=== PATIENT | female | born 1960 | race Caucasian/White ===

== ENCOUNTER 2019-12-17 07:13 | Outpatient (CLI) | payer BC, SELFPAY ==
[2019-12-17 08:08] LABS: Hematocrit 37.7 % (37.0-47.0); Hemoglobin 12.4 g/dL (12.0-15.0); Mean Corpuscular HGB Conc 32.9 g/dl (32-36); Mean Corpuscular Volume 91.1 fl (80-100); Platelet Count Result 169 k/mm3 (150-375); Red Blood Count 4.14 M/mm3 (4.2-5.4); Red Cell Distribution Width 13.7 % (11.5-14.5); White Blood Count 6.3 K/mm3 (4.5-10.0)
[2019-12-17 08:15] LABS: Alanine Aminotransferase 35 U/L (4-35); Albumin Level 4.3 g/dL (3.5-5.1); Alkaline Phosphatase 68 U/L (38-126); Aspartate Amino Transferase 37 U/L (14-36); Blood Urea Nitrogen 16 mg/dL (7-17); Calcium 8.9 mg/dL (8.4-10.2); Carbon Dioxide 27 mmol/L (22-30); Chloride 104 mmol/L (98-107); Cholesterol 149 mg/dL (0-200); Estimated Glomerular Filt Rate > 60; Glucose 92 mg/dL (65-105); HDL Direct 51 mg/dL; Sodium 137 mmol/L (137-145); Triglycerides 106 mg/dL (<150)
[2019-12-17 08:24] LABS: LDL Cholesterol Direct 77 mg/dL
[2019-12-17 08:45] LABS: Free T4 Free Thyroxine 0.83 ng/mL (0.78-2.19)
== END 2019-12-17 07:14 | disposition home or self-care (01) ==
PROVIDERS: PCP Family Medicine; Visit Provider Family Medicine
DX: E78.00 Pure hypercholesterolemia, unspecified (principal); E03.9 Hypothyroidism, unspecified
CPT/HCPCS: 36415; 80053; 80061; 84439; 84443; 85027

== ENCOUNTER 2020-03-09 17:04 | Emergency (ER) | payer BC, SELFPAY ==
[2020-03-09 17:22] VITALS: BP 136/82; PULSE 81; RESP 16; TEMP 36.9; O2SAT 97
--- NOTE | 2020-03-09 17:57 | ED.WOUNDLAC ---
HPI - Wound/Laceration General Chief Complaint: Wound/Laceration Stated Complaint: laceration left 5th finger Time Seen by Provider: 03/09/20 17:57 Source: patient and RN notes reviewed Mode of arrival: ambulatory Limitations: no limitations History of Present Illness HPI narrative: 59 year old female who presents to [facility] care with complaints of accidently cutting herself about 20 minutes prior to arrival to her left villela aspect of her 5th finger proximal region. Patient states that she just got a new pamper private chef knife and she was cutting an avocado when she sliced her finger. Patient has strong left radial pulse, full mobility of her left 5th finger noted with finger pink and bleeding controlled. Patient denies any numbness or tingling to her 5th left finger or hand,States that her Tetanus is not up to date. Onset (ago): minute(s) (20 minutes ago) Location: other (left 5th finger proximal villela aspect) Extremity Location: Left: hand (left 5th proximal finger ville[place] aspect) Place: home Patient tetanus UTD: No Context: accidental Associated symptoms: none Treatments prior to arrival: bandage Related Data Home Medications Medication Instructions Recorded Confirmed Cholesterol Med. 03/09/20 Htn Med. 03/09/20 Allergies Allergy/AdvReac Type Severity Reaction Status Date / Time No Known Allergies Allergy Mild Verified 10/26/17 09:24 Review of Systems Review of Systems: Narrative: CONSTITUTIONAL: Denies fever, chills, or sweats. EYES: Denies visual changes, redness, or discharge. ENT: Denies rhinorrhea, congestion, sore throat, or otalgia. CARDIOVASCULAR: Denies chest pain, palpitations, or edema. RESPIRATORY: Denies cough or dyspnea. GASTROINTESTINAL: Denies abdominal pain, nausea, vomiting, or diarrhea. GENITOURINARY: Denies dysuria or hematuria. SKIN: Denies rash or itching.1.5cm laceration to the villela aspect of 5th finger proximal area MUSCULOSKELETAL: Denies back pain, joint pain, or myalgia. NEUROLOGIC: Denies headache, numbness, or weakness. PSYCHIATRIC: Denies anxiety or depression. All systems reviewed & are unremarkable except as noted in HPI and below PMFSH Past Medical History Medical History (Updated 03/12/20 @ 20:45 by Cierra Burnham NP) Hyperlipemia Hypertension Postmenopausal Surgical History Surgical History (Updated 03/12/20 @ 20:34 by Cierra Burnham NP) History of surgical removal of ganglion cyst History of tonsillectomy Social History Social History (Updated 03/12/20 @ 20:35 by Cierra Burnham NP) Smoking status: Never smoker Alcohol intake: current Substance use: never Living arrangements: with family Gender identity (if verbalized by the patient): Female Comments At time of signature, agree with nursing past medical, surgical, social history. There is no relevant family history pertinent to the presenting complaint Exam Narrative: Exam Narrative: GENERAL: Well-appearing, well-nourished, and in no acute distress. HEAD: Normocephalic, atraumatic. EYES: PERRLA and EOMI. ENT: Nares clear, no rhinorrhea or epistaxis. Mucous membranes moist. NECK: Supple. CHEST: Clear to auscultation. No respiratory distress. HEART: Regular rate and rhythm. No murmur heard. Normal peripheral pulses. ABDOMEN: Soft, nontender, nondistended, normal active bowel sounds. EXTREMITIES: Normal range of motion. No edema. SKIN: Warm, dry, no rash.1.5cm linear laceration to proximal villela aspect of left 5th finger, circulation , sensation and mobility intact with bleeding controlled NEURO: No focal deficits. Alert and oriented x3. Course Vital Signs Vital signs: Vital Signs Temperature 36.9 C 03/09/20 17:22 Pulse Rate 81 03/09/20 17:22 Respiratory Rate 16 03/09/20 17:22 Blood Pressure 136/82 03/09/20 17:22 Pulse Oximetry 97 03/09/20 17:22 Temperature 36.9 C 03/09/20 17:22 Pulse Rate 81 03/09/20 17:22 Respiratory Rate 16 03/09/20 17:22 Blood Pr
--- NOTE | 2020-03-09 18:06 | PC.NURSE ---
boostrix was given vorb yusuf wright. tdap right deltoid im lot [id number], exp 09/27/21 was unable to edit order and scan.
--- NOTE | 2020-03-09 18:25 | PC.NURSE ---
it telecom technician at bedside to do suture repair. was given tdap info. sheet.
== END 2020-03-09 18:43 | disposition home or self-care (01) ==
LOC: EXPCOLL 17:07
PROVIDERS: Emergency Provider Registered Nurse; PCP Family Medicine
DX: S61.217A Laceration without foreign body of left little finger without damage to nail, initial encounter (principal); W26.0XXA Contact with knife, initial encounter; Z23 Encounter for immunization; E78.5 Hyperlipidemia, unspecified; I10 Essential (primary) hypertension; E03.9 Hypothyroidism, unspecified
CPT/HCPCS: 12001; 90471; 90715; 99213; G0463

== ENCOUNTER 2020-03-30 07:30 | Outpatient (CLI) | payer BC, SELFPAY ==
--- NOTE | ~2020-03-30 | MM_ITS ---
EXAMINATION: MM screening [facility] BI w ana HISTORY: Screening mammogram TECHNIQUE: Craniocaudal and mediolateral oblique 3-D tomosynthesis images were obtained and synthetic 2-D images were generated. CAD analysis was submitted and interpreted. COMPARISON: 10/21/2018, 10/12/2017, 10/06/2016 bilateral digital screening mammogram examinations BREAST PARENCHYMAL COMPOSITION: There are scattered areas of fibroglandular density. FINDINGS: There is no evidence of suspicious mass, calcification, or architectural distortion to sugg est malignancy in either breast. There has been no suspicious interval change. IMPRESSION: 1. No mammographic evidence of malignancy. 2. Recommend routine screening mammography in one year. BI-RADS Category 1: Negative... Reviewed, dictated and finalized at location A.
== END 2020-03-30 07:31 | disposition home or self-care (01) ==
LOC: ANHIMG 07:32
PROVIDERS: PCP Family Medicine; Visit Provider Family Medicine
DX: Z12.31 Encounter for screening mammogram for malignant neoplasm of breast (principal)
CPT/HCPCS: 77063; 77067

== ENCOUNTER 2020-05-13 13:32 | Emergency (ER) | payer BC, SELFPAY ==
[2020-05-13 13:44] VITALS: BP 141/88; PULSE 92; RESP 16; TEMP 36; O2SAT 99
--- NOTE | 2020-05-13 13:44 | ED.WOUNDLAC ---
HPI - Wound/Laceration General Chief Complaint: Wound/Laceration Stated Complaint: Laceration Time Seen by Provider: 05/13/20 13:44 Source: patient Mode of arrival: ambulatory Limitations: no limitations History of Present Illness HPI narrative: Sue Price is a 59 yo female with a PMH of HTN, hypothyroid, high cholesterol, ho comes to express care with small laceration of tip L thumb with a clean knife. Happened prior to arrival.No pain but bleeding not totally controlled Related Data Home Medications Medication Instructions Recorded Confirmed levothyroxine 75 mcg PO DAILY 05/13/20 05/13/20 lisinopril 20 mg PO DAILY 05/13/20 05/13/20 rosuvastatin 20 mg PO DAILY 05/13/20 05/13/20 Allergies Allergy/AdvReac Type Severity Reaction Status Date / Time No Known Allergies Allergy Mild Verified 05/13/20 13:37 Review of Systems Review of Systems: Narrative: CONSTITUTIONAL: Denies fever, chills, sweats. EYES: Denies visual changes, redness, discharge. ENT: Denies rhinorrhea, congestion, sore throat, otalgia. CARDIOVASCULAR: Denies chest pain, palpitations, edema. RESPIRATORY: Denies dyspnea, wheezing, cough GASTROINTESTINAL: Denies abdominal pain, nausea, vomiting, diarrhea. GENITOURINARY: Denies dysuria, hematuria, abnormal discharge SKIN: Denies rash or itching. Left arm laceration 0.5 cm NEUROLOGIC: Denies numbness, or focal weakness. PSYCHIATRIC: Denies anxiety or depression. PMFSH Past Medical History Medical History Hyperlipemia Hypertension Hypothyroid Postmenopausal Surgical History Surgical History History of surgical removal of ganglion cyst History of tonsillectomy Social History Social History Smoking status: Never smoker Alcohol intake: current Substance use: never Gender identity (if verbalized by the patient): Female Comments At time of signature, I agree with nursing past medical, surgical, social and family history. There is no relevant family history pertinent to the presenting complaint. Exam Narrative: Exam Narrative: GENERAL: This is a well-nourished, well-developed patient, in mild distress. HEAD: normocephalic, atraumatic. EYES:Sclera clear/white. Vision is grossly intact. EARS: External ears normal. Hearing grossly intact. NOSE: External nose normal without nasal discharge, nares without redness, no rhinorrhea. THROAT: Mucous membranes moist, NECK: Neck supple, CARDIOVASCULAR: Regular rate and rhythm without murmurs, gallops, or rubs. RESPIRATORY: Clear to auscultation. Breath sounds equal bilaterally. No wheezes, rales, or rhonchi. GASTROINTESTINAL: Abdomen soft, SKIN: warm, intact with no suspicious lesions or rash, good texture and turgor.small laceration with some bleeding on L medial thumb approaching nail bed NEURO: awake, alert, and oriented to person, place and time. There were no obvious focal neurologic abnormalities. Steady gait EXTREMITIES: Normal range of motion. BACK: Nontender without deformity Course Course Emergency Course: Patient came to express care with small lack to left thumb with some bleeding Number repaired with adhesive and Steri-Strips pressure dressing applied Directions for care given; see tetanus vaccine last visit Vital Signs Vital signs: Vital Signs Temperature 96.8 F L 05/13/20 13:44 Pulse Rate 92 05/13/20 13:44 Respiratory Rate 16 05/13/20 13:44 Blood Pressure 141/88 H 05/13/20 13:44 Pulse Oximetry 99 05/13/20 13:44 Temperature 96.8 F L 05/13/20 13:47 Pulse Rate 92 05/13/20 13:47 Respiratory Rate 16 05/13/20 13:47 Blood Pressure 141/88 H 05/13/20 13:47 Pulse Oximetry 99 05/13/20 13:47 Procedures Laceration Laceration 1: Date: 05/13/20 Time: 14:00 Site: hand Side (If applicable): left Siz
[2020-05-13 13:47] VITALS: BP 141/88; PULSE 92; RESP 16; TEMP 36; O2SAT 99
== END 2020-05-13 14:07 | disposition home or self-care (01) ==
PROVIDERS: Emergency Provider Nurse Practitioner; PCP Family Medicine
DX: S61.012A Laceration without foreign body of left thumb without damage to nail, initial encounter (principal); W26.0XXA Contact with knife, initial encounter; E78.5 Hyperlipidemia, unspecified; I10 Essential (primary) hypertension; E03.9 Hypothyroidism, unspecified
CPT/HCPCS: 12001; 99212; G0463

== ENCOUNTER 2020-09-15 07:17 | Outpatient (CLI) | payer BC, SELFPAY ==
[2020-09-15 07:47] LABS: Alanine Aminotransferase 28 U/L (4-35); Albumin Level 4.6 g/dL (3.5-5.1); Alkaline Phosphatase 79 U/L (38-126); Anion Gap 5 mmol/L (8-16); Aspartate Amino Transferase 30 U/L (14-36); Blood Urea Nitrogen 16 mg/dL (7-17); Calcium 9.7 mg/dL (8.4-10.2); Carbon Dioxide 30 mmol/L (22-30); Chloride 105 mmol/L (98-107); Cholesterol 171 mg/dL (0-200); Estimated Glomerular Filt Rate > 60; Glucose 100 mg/dL (65-105); HDL Direct 48 mg/dL; Potassium 4.5 mmol/L (3.4-5.0); Sodium 140 mmol/L (137-145); Triglycerides 111 mg/dL (<150)
[2020-09-15 07:58] LABS: LDL Cholesterol Direct 85 mg/dL
== END 2020-09-15 07:18 | disposition home or self-care (01) ==
PROVIDERS: PCP Internal Medicine; Visit Provider Nurse Practitioner
DX: E03.9 Hypothyroidism, unspecified (principal); E78.5 Hyperlipidemia, unspecified
CPT/HCPCS: 36415; 80053; 80061; 84443

== ENCOUNTER 2021-03-23 07:38 | Outpatient (CLI) | payer BC, SELFPAY ==
[2021-03-23 08:46] LABS: Alanine Aminotransferase 28 U/L (4-35); Albumin Level 4.9 g/dL (3.5-5.1); Alkaline Phosphatase 93 U/L (38-126); Anion Gap 11 mmol/L (8-16); Aspartate Amino Transferase 31 U/L (14-36); Bilirubin,Total 1.3 mg/dL (0.2-1.3); Blood Urea Nitrogen 18 mg/dL (7-17); Carbon Dioxide 26 mmol/L (22-30); Chloride 105 mmol/L (98-107); Cholesterol 181 mg/dL (0-200); Estimated Glomerular Filt Rate > 60; Glucose 100 mg/dL (65-110); HDL Direct 57 mg/dL; Potassium 4.3 mmol/L (3.4-5.0); Sodium 142 mmol/L (137-145); Triglycerides 99 mg/dL (<150)
[2021-03-23 08:57] LABS: LDL Cholesterol Direct 86 mg/dL
== END 2021-03-23 07:39 | disposition home or self-care (01) ==
PROVIDERS: PCP Internal Medicine; Visit Provider Nurse Practitioner
DX: E78.5 Hyperlipidemia, unspecified (principal); E03.9 Hypothyroidism, unspecified
CPT/HCPCS: 36415; 80053; 80061; 84443

== ENCOUNTER 2021-04-23 17:29 | Outpatient (CLI) | payer BC, SELFPAY ==
--- NOTE | ~2021-04-23 | MM_ITS ---
EXAMINATION: MM screening leda BI w ana HISTORY: Screening mammogram TECHNIQUE: Craniocaudal and mediolateral oblique 3-D tomosynthesis images were obtained and synthetic 2-D images were generated. CAD analysis was submitted and interpreted. COMPARISON: 03/30/2020, 10/21/2018, 10/12/2017 bilateral digital screening mammogram examinations BREAST PARENCHYMAL COMPOSITION: There are scattered areas of fibroglandular density. FINDINGS: There is no evidence of suspicious mass, calcification, or architectural distortion to sugg est malignancy in either breast. There has been no suspicious interval change. IMPRESSION: 1. No mammographic evidence of malignancy. 2. Recommend routine screening mammography in one year. BI-RADS Category 1: Negative Reviewed, dictated and finalized at location A.
== END 2021-04-23 17:30 | disposition home or self-care (01) ==
LOC: ANHIMG 17:30
PROVIDERS: PCP Internal Medicine; Visit Provider Nurse Practitioner
DX: Z12.31 Encounter for screening mammogram for malignant neoplasm of breast (principal)
CPT/HCPCS: 77063; 77067

== ENCOUNTER 2021-10-05 08:10 | Outpatient (CLI) | payer BC, SELFPAY ==
[2021-10-05 08:41] LABS: Alanine Aminotransferase 27 U/L (4-35); Albumin Level 4.8 g/dL (3.5-5.1); Alkaline Phosphatase 85 U/L (38-126); Anion Gap 9 mmol/L (8-16); Aspartate Amino Transferase 34 U/L (14-36); Bilirubin,Total 0.8 mg/dL (0.2-1.3); Blood Urea Nitrogen 15 mg/dL (7-17); Calcium 9.3 mg/dL (8.4-10.2); Carbon Dioxide 28 mmol/L (22-30); Chloride 104 mmol/L (98-107); Cholesterol 167 mg/dL (0-200); Estimated Glomerular Filt Rate > 60; Glucose 101 mg/dL (65-110); HDL Direct 49 mg/dL; Potassium 4.4 mmol/L (3.4-5.0); Sodium 141 mmol/L (137-145); Triglycerides 87 mg/dL (<150)
[2021-10-05 08:52] LABS: LDL Cholesterol Direct 73 mg/dL
== END 2021-10-05 08:11 | disposition home or self-care (01) ==
LOC: ANHLAB 08:11
PROVIDERS: PCP Internal Medicine; Visit Provider Nurse Practitioner
DX: E78.5 Hyperlipidemia, unspecified (principal)
CPT/HCPCS: 36415; 80053; 80061

== ENCOUNTER 2022-04-18 08:09 | Outpatient (CLI) | payer BC, SELFPAY ==
[2022-04-18 09:18] LABS: Alanine Aminotransferase 32 U/L (6-35); Albumin Level 4.9 g/dL (3.5-5.1); Alkaline Phosphatase 82 U/L (38-126); Anion Gap 9 mmol/L (8-16); Aspartate Amino Transferase 29 U/L (14-36); Blood Urea Nitrogen 18 mg/dL (7-17); Calcium 9.6 mg/dL (8.4-10.2); Carbon Dioxide 30 mmol/L (22-30); Chloride 102 mmol/L (98-107); Cholesterol 170 mg/dL (0-200); Estimated Glomerular Filt Rate > 60; Glucose 98 mg/dL (65-110); HDL Direct 53 mg/dL; Potassium 4.3 mmol/L (3.4-5.0); Sodium 141 mmol/L (137-145); Triglycerides 141 mg/dL (<150)
[2022-04-18 09:29] LABS: LDL Cholesterol Direct 77 mg/dL
== END 2022-04-18 08:10 | disposition home or self-care (01) ==
PROVIDERS: PCP Internal Medicine; Visit Provider Internal Medicine
DX: Z01.89 Encounter for other specified special examinations (principal); Z01.01 Encounter for examination of eyes and vision with abnormal findings
CPT/HCPCS: 36415; 80053; 80061; 84443

== ENCOUNTER 2022-05-16 10:49 | Outpatient (CLI) | payer BC, SELFPAY ==
--- NOTE | ~2022-05-16 | MM_ITS ---
EXAMINATION: MM screening leda BI w ana HISTORY: Screening mammogram TECHNIQUE: Craniocaudal and mediolateral oblique 3-D tomosynthesis images were obtained and synthetic 2-D images were generated. CAD analysis was submitted and interpreted. COMPARISON: 04/23/2021, 03/30/2020, 10/21/2018 bilateral screening mammogram examinations BREAST PARENCHYMAL COMPOSITION: There are scattered areas of fibroglandular density. FINDINGS: There is no evidence of suspicious mass, calcification, or architectural distortion to sugg est malignancy in either breast. There has been no suspicious interval change. IMPRESSION: 1. No mammographic evidence of malignancy. 2. Recommend routine screening mammography in one year. BI-RADS Category 1: Negative Reviewed, dictated and finalized at location A. CAL ADMINISTRATIVE TECHNICIAN
== END 2022-05-16 10:50 | disposition home or self-care (01) ==
LOC: ANHIMG 10:52
PROVIDERS: PCP Internal Medicine; Visit Provider Internal Medicine
DX: Z12.31 Encounter for screening mammogram for malignant neoplasm of breast (principal)
CPT/HCPCS: 77063; 77067

== ENCOUNTER 2022-10-28 06:35 | Outpatient (CLI) | payer BC, SELFPAY ==
[2022-10-28 07:04] LABS: Alanine Aminotransferase 33 U/L (6-35); Albumin Level 4.5 g/dL (3.5-5.1); Alkaline Phosphatase 72 U/L (38-126); Anion Gap 8 mmol/L (8-16); Aspartate Amino Transferase 27 U/L (14-36); Bilirubin,Total 0.8 mg/dL (0.2-1.3); Blood Urea Nitrogen 19 mg/dL (7-17); Calcium 8.8 mg/dL (8.4-10.2); Carbon Dioxide 28 mmol/L (22-30); Chloride 105 mmol/L (98-107); Cholesterol 153 mg/dL (0-200); Estimated Glomerular Filt Rate > 60; Glucose 99 mg/dL (65-110); HDL Direct 45 mg/dL; Potassium 4.3 mmol/L (3.4-5.0); Sodium 141 mmol/L (137-145); Triglycerides 138 mg/dL (<150)
[2022-10-28 07:15] LABS: LDL Cholesterol Direct 73 mg/dL
== END 2022-10-28 06:36 | disposition home or self-care (01) ==
LOC: ANHLAB 06:36
PROVIDERS: PCP Family Medicine; Visit Provider Nurse Practitioner
DX: Z00.00 Encounter for general adult medical examination without abnormal findings (principal); E78.5 Hyperlipidemia, unspecified; E03.9 Hypothyroidism, unspecified
CPT/HCPCS: 36415; 80053; 80061; 84443

== ENCOUNTER 2022-12-22 08:15 | Outpatient (CLI) | payer BC, SELFPAY ==
[2022-12-22 09:11] LABS: Basophils Absolute Auto 0.1 K/mm3 (0.0-0.1); Basophils Percent Auto 0.8 % (0.2-1.2); Eosinophils Absolute Auto 0.3 K/mm3 (0-0.3); Eosinophils Percent Auto 4.9 % (0-4.4); Hematocrit 41.1 % (37.0-47.0); Hemoglobin 13.2 g/dL (12.0-15.0); Immature Granulocyte Absolute 0.01 K/mm3 (0.00-0.031); Immature Granulocyte Percent A 0.2 % (0-0.5); Lymphocytes Absolute Auto 1.76 K/mm3 (0.9-3.2); Lymphocytes Percent Auto 28.9 % (18.3-44.2); Mean Corpuscular HGB Conc 32.1 g/dl (32-36); Mean Corpuscular Hemoglobin 29.2 pg (26-34); Mean Corpuscular Volume 90.9 fl (80-100); Monocytes Absolute Auto 0.6 K/mm3 (0.1-0.6); Monocytes Percent Auto 10.2 % (2.6-8.5); Neutrophils Absolute Auto 3.3 K/mm3 (1.3-6.7); Platelet Count Result 179 k/mm3 (150-375); Red Blood Count 4.52 M/mm3 (4.2-5.4); Red Cell Distribution Width 13.7 % (11.5-14.5); White Blood Count 6.1 K/mm3 (4.5-10.0)
[2022-12-22 09:35] LABS: Iron 87 ug/dL (37-170)
[2022-12-22 09:45] LABS: Percent Iron Saturation 23 % (20-50)
[2022-12-22 09:55] LABS: Free T4 Free Thyroxine 1.07 ng/mL (0.78-2.19); Thyroid Stimulating Hormone 0.796 uIU/mL (0.465-4.680)
[2022-12-22 10:29] LABS: Vitamin D 25 Hydroxy 33.9 ng/mL
[2022-12-22 10:34] LABS: Folic Acid > 20.0 ng/mL (2.76->20)
== END 2022-12-22 08:16 | disposition home or self-care (01) ==
LOC: ANHLAB 08:16
PROVIDERS: PCP Nurse Practitioner Family; Visit Provider Nurse Practitioner Family
DX: Z00.00 Encounter for general adult medical examination without abnormal findings (principal); E03.9 Hypothyroidism, unspecified; R53.83 Other fatigue; E55.9 Vitamin D deficiency, unspecified
CPT/HCPCS: 36415; 82306; 82607; 82746; 83540; 83550; 84439; 84443; 85025

== ENCOUNTER 2023-02-05 12:28 | Emergency (ER) | payer BC, SELFPAY ==
--- NOTE | ~2023-02-05 | XR_ITS ---
EXAMINATION: XR chest 2V DATE: 02/05/2023 13:53 INDICATION: Productive cough TECHNIQUE: PA and lateral views of the chest were obtained. COMPARISON: Chest radiograph dated 07/17/2007 FINDINGS: The lungs remain clear with no focal airspace opacities, pulmonary edema, pleural effusion or pneumot horax. The cardiomediastinal silhouette is normal. Mild thoracic spondylosis. IMPRESSION: 1. No acute cardiopulmonary disease. Reviewed, dictated and finalized at location A.
[2023-02-05 12:47] VITALS: BP 160/85; PULSE 64; RESP 16; TEMP 36.6; O2SAT 98
--- NOTE | 2023-02-05 13:39 | ED.URI ---
HPI - URI/Sore Throat General Chief Complaint: Upper Respiratory Infection Stated Complaint: out of breath Time Seen by Provider: 02/05/23 13:39 Source: patient Mode of arrival: ambulatory Limitations: no limitations History of Present Illness HPI Narrative: 62-year-old female with a history of asthma presented for complaint of fatigue and difficulty taking in a full breath sometimes. Reports occasional cough with green sputum. Symptoms started about 10 days ago. Reports not sleeping well last night. Denies cp, palpitations, sob, wheezing, n/v/d/f/c. States her tested positive for covid 2 weeks ago. Using albuterol inhaler prn, stating it is not helping much. States she was told several years ago she had CHF from a chest xray, but has not had any issues since then. Related Data Home Medications Medication Instructions Recorded Confirmed aspirin 81 mg tablet,delayed 81 mg PO DAILY 09/14/20 04/25/22 release (Jamin Low Dose Aspirin) cetirizine 10 mg tablet (Allergy 10 mg PO DAILY PRN 09/14/20 11/03/22 Relief (cetirizine)) coenzyme Q10 200 mg capsule 200 mg PO DAILY 09/14/20 04/25/22 glucosamine [id number]-L5-Hairijkav 1 tablet PO DAILY 09/14/20 11/03/22 jorge 1,500 mg-400 unit-100 mg tablet (Osteo Bi-Flex (5-Loxin)) Allergies Allergy/AdvReac Type Severity Reaction Status Date / Time No Known Allergies Allergy Mild Verified 11/03/22 10:02 Review of Systems Review of Systems: CONSTITUTIONAL: Reports fatigue denies body aches, fever, chills, or sweats. EYES: Denies visual changes, redness, or discharge. ENT: Denies rhinorrhea, congestion, sore throat, or otalgia. CARDIOVASCULAR: Denies chest pain, palpitations, or edema. RESPIRATORY: Reports cough, denies sob, wheezing. GASTROINTESTINAL: Denies abdominal pain, nausea, vomiting, or diarrhea. GENITOURINARY: Denies dysuria or hematuria. SKIN: Denies rash, itching, or wounds. MUSCULOSKELETAL: Denies back pain, joint pain, or myalgia. NEUROLOGIC: Denies headache, numbness, tingling, or weakness. All systems reviewed & are unremarkable except as noted in HPI and below PMFSH Past Medical History Medical History Congestive heart failure Family history of colon cancer Hyperlipemia Hypertension Hypothyroid Postmenopausal Thyroid condition Surgical History Surgical History History of surgical removal of ganglion cyst History of tonsillectomy Family History Family History Sibling Carcinoma of colon Mother Thyroid condition Social History Social History Smoking status: Never smoker Second hand tobacco smoke exposure: No Alcohol intake: current Alcohol use details: socially Substance use: never Living arrangements: with family Occupation/Education: unemployed Gender identity (if verbalized by the patient): Female Comments At time of signature, I have reviewed and agree with nursing past medical, surgical, social and family history unless otherwise noted. Please see nursing chart for further information. There is no relevant family history pertinent to the presenting complaint Exam Narrative: GENERAL: Well-appearing, in no acute distress. EYES: EOMI. No redness or drainage. Conjunctivae normal. ENT: Mucous membranes pink and moist. No rhinorrhea. TMs normal bilaterally. Throat normal. Uvula midline. NECK: Normal AROM. Supple. CHEST: No respiratory distress. No cough noted lungs clear to all haji. HEART: Regular rate and rhythm. No murmur appreciated. ABDOMEN: Soft, nontender, nondistended, normal active bowel sounds. EXTREMITIES: Normal range of motion. No edema. SKIN: Warm, dry, no rash. Capillary refill normal. Normal skin turgor. NEURO: Alert and oriented x3. Gait steady. PSYCH: Normal aff
== END 2023-02-05 14:41 | disposition home or self-care (01) ==
PROVIDERS: Emergency Provider Nurse Practitioner Family; PCP Nurse Practitioner Family
DX: B34.9 Viral infection, unspecified (principal); I11.0 Hypertensive heart disease with heart failure; E78.5 Hyperlipidemia, unspecified; E03.9 Hypothyroidism, unspecified; Z79.82 Long term (current) use of aspirin
CPT/HCPCS: 71046; 87804; 99213; G0463

== ENCOUNTER 2023-02-07 08:42 | Emergency (ER) | payer BC, SELFPAY ==
--- NOTE | ~2023-02-07 | XR_ITS ---
EXAMINATION: XR chest 1V portable DATE: 02/07/2023 09:40 INDICATION: Cough and shortness of breath TECHNIQUE: frontal view of the chest was obtained. COMPARISON: Chest radiograph dated 02/22/2023 FINDINGS: The lungs remain clear with no focal airspace opacities, pulmonary edema, pleural effusion or pneumot horax. The cardiomediastinal silhouette is within normal limits for AP technique. Old healed left cla vicle fracture. IMPRESSION: 1. No acute cardiopulmonary disease. Reviewed, dictated and finalized at location A.
[2023-02-07 08:47] VITALS: BP 150/82; PULSE 80; RESP 16; TEMP 36.3; O2SAT 96
[2023-02-07 09:05] VITALS: O2SAT 95
[2023-02-07 09:09] VITALS: BP 158/72; PULSE 64; RESP 18; O2SAT 95
[2023-02-07 09:53] LABS: Influenza A QL RT-PCR Negative (Negative); Influenza B QL RT-PCR Negative (Negative); RSV RNA, RT-PCR Negative (Negative); SARS-CoV-2 RNA PCR Positive (Negative)
--- NOTE | 2023-02-07 10:17 | ED.GENADULT ---
HPI - General Adult General Chief complaint: Upper Respiratory Infection Stated complaint: COVID EXPOSURE NOT FEELING GOOD Time Seen by Provider: 02/07/23 08:55 History of Present Illness HPI narrative: 62-year-old female presented the emergency department for evaluation of generalized weakness and intermittent shortness of breath. Patient states her was diagnosed with COVID and influenza January 25. Patient began developing symptoms on the . Patient states that she still has intermittent symptoms of shortness of breath. Patient does have a prior history of congestive heart failure. Patient denies any associated chest pain. Related Data Home Medications Medication Instructions Recorded Confirmed aspirin 81 mg tablet,delayed 81 mg PO DAILY 09/14/20 04/25/22 release (Jamin Low Dose Aspirin) cetirizine 10 mg tablet (Allergy 10 mg PO DAILY PRN 09/14/20 11/03/22 Relief (cetirizine)) coenzyme Q10 200 mg capsule 200 mg PO DAILY 09/14/20 04/25/22 glucosamine BOl-[id number]-[id number] 1 tablet PO DAILY 09/14/20 11/03/22 jorge 1,500 mg-400 unit-100 mg tablet (Osteo Bi-Flex (5-Loxin)) Allergies Allergy/AdvReac Type Severity Reaction Status Date / Time No Known Allergies Allergy Mild Verified 11/03/22 10:02 Review of Systems Review of Systems: All systems reviewed & are unremarkable except as noted in HPI and below PMFSH Past Medical History Medical History Congestive heart failure Family history of colon cancer Hyperlipemia Hypertension Hypothyroid Postmenopausal Thyroid condition Surgical History Surgical History History of surgical removal of ganglion cyst History of tonsillectomy Family History Family History Sibling Carcinoma of colon Mother Thyroid condition Social History Social History Smoking status: Never smoker Second hand tobacco smoke exposure: No Alcohol intake: current Alcohol use details: socially Substance use: never Living arrangements: with family Occupation/Education: unemployed Gender identity (if verbalized by the patient): Female Exam Narrative: APPEARANCE: Well appearing, no pain, no distress, well-nourished. HEAD: normocephalic, atraumatic. EYES: PERRLA/EOMI, conjunctivae clear. NOSE: Normal no drainage EARS:TMS clear with good light reflex. THROAT: Pharynx clear, no exudate. NECK: Supple. No adenopathy, no masses. RESPIRATORY: Airway patent, respirations nonlabored. Clear to auscultation bilaterally, no rales, rhonchi, wheezing. CARDIOVASCULAR: Regular rate and rhythm without murmurs rubs or gallops. ABDOMINAL: Soft, nontender, nondistended, normal bowel sounds MUSCULOSKELETAL: Moves all extremities. Strength/ROM intact, No edema, No calf tenderness. NEURO: Alert. Cranial nerves II through XII intact. Grossly intact SKIN: Warm, dry. Normal Color Course Course Emergency Course: 60-year-old female presented the ED for evaluation of intermittent shortness of breath and generalized weakness. Patient was placed on a monitoring manager and was found to be in intermittent ventricular bigeminy. Patient did test positive for COVID. 60 patient is afebrile but does have a leukocytosis of 11.4. Patient's CMP is generally within normal limits with no potassium or magnesium abnormality. Patient's BNP is elevated at 338. Patient is COVID-positive. Chest x-ray showed no acute cardiopulmonary malady. Patient did have intermittent ventricular bigeminy that lasts 1 minute or so and then returns back to normal sinus rhythm. Case was discussed with Dr. Gordon from cardiology and she was comfortable with the patient having close follow-up as outpatient. Patient was updated the results of her work-up and was encouraged of close follow-up. A
[2023-02-07 10:25] VITALS: BP 153/85; PULSE 58; RESP 17; O2SAT 94
[2023-02-07 10:30] LABS: Basophils Percent Auto 0.3 % (0.2-1.2); Eosinophils Absolute Auto 0.1 K/mm3 (0-0.3); Eosinophils Percent Auto 0.4 % (0-4.4); Hematocrit 41.4 % (37.0-47.0); Hemoglobin 13.8 g/dL (12.0-15.0); Immature Granulocyte Absolute 0.05 K/mm3 (0.00-0.031); Immature Granulocyte Percent A 0.4 % (0-0.5); Lymphocytes Percent Auto 18.5 % (18.3-44.2); Mean Corpuscular HGB Conc 33.3 g/dl (32-36); Mean Corpuscular Hemoglobin 29.1 pg (26-34); Mean Corpuscular Volume 87.3 fl (80-100); Mean Platelet Volume 11.7 fl (7.4-10.4); Monocytes Absolute Auto 0.9 K/mm3 (0.1-0.6); Monocytes Percent Auto 7.7 % (2.6-8.5); Neutrophils Absolute Auto 8.3 K/mm3 (1.3-6.7); Neutrophils Percent Auto 72.7 % (45.5-73.1); Platelet Count Result 204 k/mm3 (150-375); Red Blood Count 4.74 M/mm3 (4.2-5.4); Red Cell Distribution Width 13.1 % (11.5-14.5); White Blood Count 11.4 K/mm3 (4.5-10.0)
[2023-02-07 10:43] LABS: Alanine Aminotransferase 31 U/L (6-35); Albumin Level 4.6 g/dL (3.5-5.1); Alkaline Phosphatase 69 U/L (38-126); Anion Gap 11 mmol/L (8-16); Aspartate Amino Transferase 24 U/L (14-36); Blood Urea Nitrogen 21 mg/dL (7-17); Calcium 9.3 mg/dL (8.4-10.2); Carbon Dioxide 26 mmol/L (22-30); Chloride 105 mmol/L (98-107); Estimated CRCL calculation 87 ml/min; Estimated Glomerular Filt Rate > 60; Glucose 102 mg/dL (65-110); Magnesium 2.1 mg/dL (1.6-2.3); Potassium 3.7 mmol/L (3.4-5.0); Sodium 142 mmol/L (137-145)
[2023-02-07 10:51] LABS: NT Pro B Type Natriuretic Pept 338 pg/mL (19.9-100)
[2023-02-07 11:45] VITALS: BP 154/73; PULSE 52; RESP 12; O2SAT 95
[2023-02-07 12:19] VITALS: BP 144/59; PULSE 54; RESP 12; O2SAT 97
== END 2023-02-07 12:21 | disposition home or self-care (01) ==
PROVIDERS: Emergency Provider Emergency Medicine; PCP Nurse Practitioner Family
DX: U07.1 COVID-19 (principal); R00.8 Other abnormalities of heart beat; I50.9 Heart failure, unspecified; I11.0 Hypertensive heart disease with heart failure; E78.5 Hyperlipidemia, unspecified; E03.9 Hypothyroidism, unspecified
CPT/HCPCS: 36415; 71045; 80053; 83735; 83880; 84443; 85025; 87637; 99283

== ENCOUNTER 2023-03-20 18:54 | Emergency (ER) | payer BC, SELFPAY ==
--- NOTE | ~2023-03-20 | XR_ITS ---
XR chest 2V DATE: 03/21/2023 00:25 INDICATION: Cough TECHNIQUE: PA and lateral views COMPARISON: 02/07/2023 portable AP chest FINDINGS: Heart size is within upper normal limits. Mild aortic unfolding. No hilar or mediastinal en largement. No pulmonary infiltrate or consolidation, pleural effusion or pulmonary vascular congestion or pneumo thorax. Old healed fracture deformity of left mid clavicular shaft. IMPRESSION: No active disease Reviewed, dictated and finalized at location A. IMPRESSION: No active disease
[2023-03-20 18:59] VITALS: BP 153/67; PULSE 86; RESP 17; TEMP 36.6; O2SAT 95
[2023-03-20 21:35] VITALS: BP 148/94; PULSE 69; RESP 19; O2SAT 95
--- NOTE | 2023-03-21 00:04 | ED.GENADULT ---
HPI - General Adult General Chief complaint: Unspecified Stated complaint: I don't feel good Time Seen by Provider: 03/20/23 23:47 History of Present Illness HPI narrative: 62-year-old female reports for evaluation for generalized malaise, nasal congestion, ear congestion, and intermittent nonproductive cough. Patient was diagnosed with COVID at the beginning of February and states since then she has not felt back to normal. She was diagnosed with COVID on 02/07 and was found to have ventricular bigeminy at that time. She followed up with her PCP who referred her to cardiology. The patient is scheduled in 2 days for Holter monitor and in April for an echo. She has been taking Zyrtec and Flonase daily. She was recently prescribed azithromycin by her PCP again for continual symptoms, her last dose is tomorrow. She also states she has been feeling more anxious and jittery lately. She denies chest pain or shortness of breath, abdominal pain, nausea or vomiting, diarrhea, fever, dysuria or hematuria, sore throat. Related Data Home Medications Medication Instructions Recorded Confirmed aspirin 81 mg tablet,delayed 81 mg PO DAILY 09/14/20 03/17/23 release (Jamin Low Dose Aspirin) cetirizine 10 mg tablet (Allergy 10 mg PO DAILY PRN 09/14/20 03/17/23 Relief (cetirizine)) coenzyme Q10 200 mg capsule 200 mg PO DAILY 09/14/20 03/17/23 glucosamine HBr-P3-Iseswkgyz 1 tablet PO DAILY 09/14/20 03/17/23 jorge 1,500 mg-400 unit-100 mg tablet (Osteo Bi-Flex (5-Loxin)) Allergies Allergy/AdvReac Type Severity Reaction Status Date / Time No Known Allergies Allergy Mild Verified 03/17/23 11:01 Review of Systems Review of Systems: CONSTITUTIONAL: Denies fever, chills EYES: Denies visual changes, redness, or discharge. ENT: See HPI CARDIOVASCULAR: Denies chest pain, palpitations, or edema. RESPIRATORY: Denies cough or dyspnea. GASTROINTESTINAL: Denies abdominal pain, nausea, vomiting, or diarrhea. GENITOURINARY: Denies dysuria or hematuria. SKIN: Denies rash or itching. MUSCULOSKELETAL: Denies back pain, joint pain, or myalgia. NEUROLOGIC: Denies headache, numbness, dizziness, or weakness. PSYCHIATRIC: See [facility] Past Medical History Medical History Congestive heart failure Family history of colon cancer Hyperlipemia Hypertension Hypothyroid Postmenopausal Thyroid condition Surgical History Surgical History History of surgical removal of ganglion cyst History of tonsillectomy Family History Family History Sibling Carcinoma of colon Mother Thyroid condition Social History Social History Smoking status: Never smoker Second hand tobacco smoke exposure: No Alcohol intake: current Alcohol use details: socially Substance use: never Lack of Transportation: No Lack of Food: Never True Current Housing: I Have Housing Concerned About Future Housing: No Difficulty Paying Gas/Electric Bills: No Difficulty Paying for Meds: No Currently Unemployed: No Education: High School Diploma/GED Difficulty w/ Childcare or Family Care: No Living arrangements: with family Occupation/Education: unemployed Gender identity (if verbalized by the patient): Female Exam Narrative: GENERAL: Well-appearing, in no acute distress. Patient resting comfortably in exam bed. She is pleasant conversational. HEAD: Normocephalic EYES: PERRLA, EOMI ENT: Nares clear. Mucous membranes moist. Oropharynx without tonsillar hypertrophy exudate or other lesions. Bilateral TMs are pardo and nonbulging. No mastoid tenderness. Normal canals. NECK: Supple. No nuchal rigidity. CHEST: No respiratory distress. Clear to auscultation, no adventitious breath sounds. HEART: Regular rate and
[2023-03-21] MEDS: LORazepam INJ (*CRX) 2 MG/ML VIAL 1 MG IV PUSH (00:45)
[2023-03-21] MEDS: SODIUM CHLORIDE 0.9% IV 1,000 ML 999 ML IV CONT (00:46)
[2023-03-21 00:50] VITALS: BP 146/64; PULSE 68; RESP 15; O2SAT 98
[2023-03-21 00:52] LABS: Basophils Percent Auto 0.5 % (0.2-1.2); Eosinophils Absolute Auto 0.3 K/mm3 (0-0.3); Hematocrit 39.9 % (37.0-47.0); Hemoglobin 13.2 g/dL (12.0-15.0); Immature Granulocyte Absolute 0.01 K/mm3 (0.00-0.031); Immature Granulocyte Percent A 0.1 % (0-0.5); Lymphocytes Absolute Auto 1.84 K/mm3 (0.9-3.2); Lymphocytes Percent Auto 22.3 % (18.3-44.2); Mean Corpuscular HGB Conc 33.1 g/dl (32-36); Mean Corpuscular Hemoglobin 29.4 pg (26-34); Mean Corpuscular Volume 88.9 fl (80-100); Mean Platelet Volume 11.8 fl (7.4-10.4); Monocytes Absolute Auto 0.7 K/mm3 (0.1-0.6); Monocytes Percent Auto 8.6 % (2.6-8.5); Neutrophils Absolute Auto 5.4 K/mm3 (1.3-6.7); Neutrophils Percent Auto 65.5 % (45.5-73.1); Platelet Count Result 184 k/mm3 (150-375); Red Blood Count 4.49 M/mm3 (4.2-5.4); Red Cell Distribution Width 13.4 % (11.5-14.5); White Blood Count 8.3 K/mm3 (4.5-10.0)
[2023-03-21 01:01] LABS: Alanine Aminotransferase 25 U/L (6-35); Albumin Level 4.6 g/dL (3.5-5.1); Alkaline Phosphatase 71 U/L (38-126); Anion Gap 8 mmol/L (8-16); Aspartate Amino Transferase 26 U/L (14-36); Bilirubin,Total 1.1 mg/dL (0.2-1.3); Blood Urea Nitrogen 11 mg/dL (7-17); Calcium 9.6 mg/dL (8.4-10.2); Carbon Dioxide 27 mmol/L (22-30); Chloride 104 mmol/L (98-107); Estimated CRCL calculation 102 ml/min; Estimated Glomerular Filt Rate > 60; Glucose 107 mg/dL (65-110); Potassium 3.8 mmol/L (3.4-5.0); Sodium 139 mmol/L (137-145)
--- NOTE | 2023-03-21 01:52 | ECG_ITS ---
Measurements Intervals [place] Rate: 72 P: 65 SC: 160 QRS: 13 QRSD: 97 T: 51 QT: 424 QTc: 465 Interpretive Statements SINUS RHYTHM VENTRICULAR BIGEMINY ABNORMAL ECG NO PREVIOUS ECG AVAILABLE FOR COMPARISON Electronically Signed On 03-21-2023 7:30:12 CDT by Sabas Mccrary D.O.
[2023-03-21 02:11] LABS: Appearance Urine Clear (Clear); Bacteria Urine None Seen /hpf; Bilirubin Urine Negative (Negative); Blood Urine Negative (Negative); Color Urine Yellow (Yellow); Glucose Urine UA Negative (Negative); Ketones Urine 1+ mg/dL (Negative); Leukocyte Esterase Ur 2+ LEU/UL (Negative); Nitrate Urine Negative (Negative); Non Pathogenic Casts 0-2; Protein Urine Negative (Negative); RBC Urine 0-2 /hpf (0-2); Specific Grav Ur 1.017 (1.001-1.035); Squamous Epithelial Cell Urine None seen /hpf (Few); Urobilinogen Urine 0.2 mg/dL (<2.0); WBC Urine 21-50 /hpf; pH Urine 5.5 (5.0-9.0)
[2023-03-21 02:13] LABS: Add Urine Microscopic? YES
[2023-03-21 02:28] LABS: Magnesium 2.2 mg/dL (1.6-2.3)
[2023-03-21 02:31] VITALS: BP 138/74; PULSE 68; RESP 15; O2SAT 95
[2023-03-21] MEDS: LORazepam INJ (*CRX) 2 MG/ML VIAL 0.5 MG IV PUSH (03:15)
[2023-03-21 03:37] VITALS: BP 130/76; PULSE 58; RESP 15; O2SAT 98
== END 2023-03-21 03:39 | disposition home or self-care (01) ==
PROVIDERS: Emergency Provider Physician Assistant; PCP Nurse Practitioner Family
DX: R00.8 Other abnormalities of heart beat (principal); R82.90 Unspecified abnormal findings in urine; I11.0 Hypertensive heart disease with heart failure; I50.9 Heart failure, unspecified; E78.5 Hyperlipidemia, unspecified; E03.9 Hypothyroidism, unspecified; Z79.82 Long term (current) use of aspirin; Z79.51 Long term (current) use of inhaled steroids
CPT/HCPCS: 36415; 71046; 80053; 81001; 83735; 85025; 87086; 87088; 93005; 96361; 96374; 96376; 99284; J2060; J7030

== ENCOUNTER 2023-03-23 10:06 | Outpatient (CLI) | payer BC, SELFPAY ==
[2023-03-23 10:55] LABS: Basophils Percent Auto 0.5 % (0.2-1.2); Eosinophils Absolute Auto 0.2 K/mm3 (0-0.3); Eosinophils Percent Auto 2.8 % (0-4.4); Hematocrit 41.7 % (37.0-47.0); Hemoglobin 13.6 g/dL (12.0-15.0); Immature Granulocyte Absolute 0.02 K/mm3 (0.00-0.031); Immature Granulocyte Percent A 0.3 % (0-0.5); Lymphocytes Absolute Auto 1.63 K/mm3 (0.9-3.2); Mean Corpuscular HGB Conc 32.6 g/dl (32-36); Mean Corpuscular Hemoglobin 29.2 pg (26-34); Mean Corpuscular Volume 89.7 fl (80-100); Mean Platelet Volume 11.9 fl (7.4-10.4); Monocytes Absolute Auto 0.5 K/mm3 (0.1-0.6); Monocytes Percent Auto 6.5 % (2.6-8.5); Neutrophils Absolute Auto 5.3 K/mm3 (1.3-6.7); Neutrophils Percent Auto 68.9 % (45.5-73.1); Platelet Count Result 199 k/mm3 (150-375); Red Blood Count 4.65 M/mm3 (4.2-5.4); Red Cell Distribution Width 13.5 % (11.5-14.5); White Blood Count 7.8 K/mm3 (4.5-10.0)
[2023-03-23 11:07] LABS: Iron 81 ug/dL (37-170)
[2023-03-23 11:12] LABS: Alanine Aminotransferase 25 U/L (6-35); Albumin Level 4.9 g/dL (3.5-5.1); Alkaline Phosphatase 66 U/L (38-126); Anion Gap 9 mmol/L (8-16); Aspartate Amino Transferase 28 U/L (14-36); Bilirubin,Total 1.2 mg/dL (0.2-1.3); Blood Urea Nitrogen 11 mg/dL (7-17); Calcium 9.9 mg/dL (8.4-10.2); Carbon Dioxide 27 mmol/L (22-30); Chloride 103 mmol/L (98-107); Cholesterol 160 mg/dL (0-200); Estimated Glomerular Filt Rate > 60; Glucose 103 mg/dL (65-110); HDL Direct 53 mg/dL; Magnesium 2.2 mg/dL (1.6-2.3); Sodium 139 mmol/L (137-145); Triglycerides 104 mg/dL (<150)
[2023-03-23 11:16] LABS: Percent Iron Saturation 21 % (20-50)
[2023-03-23 11:23] LABS: LDL Cholesterol Direct 72 mg/dL
[2023-03-23 12:58] LABS: Folic Acid > 20.0 ng/mL (2.76->20)
[2023-03-25 12:58] LABS: Vitamin D 25 Hydroxy 37.6 ng/mL
== END 2023-03-23 10:07 | disposition home or self-care (01) ==
LOC: ANHLAB 10:09
PROVIDERS: PCP Nurse Practitioner Family; Visit Provider Nurse Practitioner Family
DX: R00.2 Palpitations (principal); R53.83 Other fatigue; E03.9 Hypothyroidism, unspecified; I10 Essential (primary) hypertension; E66.9 Obesity, unspecified; J45.909 Unspecified asthma, uncomplicated
CPT/HCPCS: 36415; 80053; 80061; 82306; 82607; 82746; 83540; 83550; 83735; 84443; 85025

== ENCOUNTER 2023-04-10 10:09 | Outpatient (CLI) | payer BC, SELFPAY ==
[2023-04-10 12:00] LABS: Free T4 Free Thyroxine 1.12 ng/mL (0.78-2.19)
[2023-04-10 12:01] LABS: Appearance Urine Clear (Clear); Bacteria Urine None Seen /hpf; Bilirubin Urine Negative (Negative); Blood Urine Negative (Negative); Color Urine Yellow (Yellow); Glucose Urine UA Negative (Negative); Ketones Urine Negative (Negative); Leukocyte Esterase Ur Trace LEU/UL (NEGATIVE); Nitrate Urine Negative (Negative); Non Pathogenic Casts 0-2; Protein Urine Negative (Negative); RBC Urine 0-2 /hpf (0-2); Specific Grav Ur 1.022 (1.001-1.035); Squamous Epithelial Cell Urine None seen /hpf (Few); Urobilinogen Urine 0.2 mg/dL (<2.0); WBC Urine 0-5 /hpf (0-3); pH Urine 5.5 (5.0-9.0)
[2023-04-10 12:08] LABS: Add Urine Microscopic? YES
[2023-04-13 04:44] LABS: Thyroid Peroxidase Antibodies 338 IU/mL (<9)
== END 2023-04-10 10:10 | disposition home or self-care (01) ==
LOC: ANHLAB 10:10
PROVIDERS: PCP Nurse Practitioner Family; Visit Provider Nurse Practitioner Family
DX: R39.9 Unspecified symptoms and signs involving the genitourinary system (principal); E03.9 Hypothyroidism, unspecified; I10 Essential (primary) hypertension; J45.909 Unspecified asthma, uncomplicated
CPT/HCPCS: 36415; 81001; 84439; 86376; 87086

== ENCOUNTER 2023-04-13 14:29 | Outpatient (CLI) | payer BC, SELFPAY ==
--- NOTE | 2023-04-13 14:40 | ECHO_ITS ---
Patient Info Name: Sue Price Age: 62 years : 1960 Gender: Female Ht: 64 in Wt: 185 lbs BSA: 1.98 m2 HR: 97 bpm BP: 125 / 95 mmHg Heart Rhythm: Sinus Rhythm Technical Quality: Fair Exam Date: 04/13/2023 2:59 PM Exam Location: [facility] Card Pulmonary Patient Status: Outpatient Admit Date: 04/13/2023 Staff Ordering Physician: Emma Murillo APRN Ethanol Quality Leader: Alexandra Wesley RDCS Attending Provider: Susana Fitzpatrick APRN Referring Physician: Lidia HEBERT; Exam Type: CA echo doppler color flow Study Info Indications R00.2 - Palpitations Complete two-dimensional, color flow and Doppler transthoracic echocardiogram is performed. Summary 1. Complete two-dimensional, color flow and Doppler transthoracic echocardiogram is performed. 2. Left ventricular chamber dimension is mildly enlarged. 3. Left ventricular systolic function is mildly reduced, estimated at 45-50%. 4. There is mildly increased left ventricular wall thickness. 5. The left ventricular diastolic function is grade I diastolic dysfunction. 6. Left atrial chamber dimension is mildly enlarged. 7. There is mild tricuspid valve regurgitation. 8. There is small pericardial effusion. 9. Very frequent ventricular ectopy. Left Ventricle Left ventricular chamber dimension is mildly enlarged. Left ventricular systolic function is mildly reduced, estimated at 45-50%. There is mildly increased left ventricular wall thickness. The left ventricular diastolic function is grade I diastolic dysfunction. Right Ventricle Right ventricular chamber dimension is normal. Right ventricular systolic function is normal. Left Atria Left atrial chamber dimension is mildly enlarged. Right Atria Right atrial chamber dimension is normal. Atrial Septum Intact interatrial septum visualized by color flow imaging. Aortic Valve The aortic valve is trileaflet. There is mild aortic valve sclerosis. There is no aortic valve stenosis. There is trace aortic valve regurgitation. Pulmonic Valve The pulmonic valve is normal. There is no pulmonic valve stenosis. There is trace pulmonic regurgitation. Mitral Valve The mitral valve has normal leaflets. There is no mitral valve stenosis. There is trace mitral valve regurgitation. Tricuspid Valve The tricuspid valve leaflets are normal. There is no significant tricuspid valve stenosis. There is mild tricuspid valve regurgitation. No pulmonary hypertension, estimated pulmonary arterial systolic pressure is 27 mmHg. Other Findings Very frequent ventricular ectopy. Pericardium/Pleural The pericardium appears normal. There is small pericardial effusion. Inferior Vena Cava Normal inferior vena cava with >50% collapse upon inspiration consistent with normal right atrial pressure, 10 mmHg. Aorta The aortic root size at the sinus of Valsalva is normal. Left Ventricular Outflow Tract Name Value Normal LVOT 2D LVOT Diameter 2.1 cm LVOT Doppler LVOT Peak Gradient 5 mmHg LVOT Mean Gradient 3 mmHg LVOT VTI 21 cm LVOT VTI/AV VTI Ratio 0.9 LVOT Stroke Volume
== END 2023-04-13 14:30 | disposition home or self-care (01) ==
LOC: ANHCARD 14:30
PROVIDERS: PCP Nurse Practitioner Family; Visit Provider Nurse Practitioner Family
DX: R00.2 Palpitations (principal); I51.7 Cardiomegaly; I50.1 Left ventricular failure, unspecified; I34.0 Nonrheumatic mitral (valve) insufficiency; I31.39 Other pericardial effusion (noninflammatory); R93.1 Abnormal findings on diagnostic imaging of heart and coronary circulation
CPT/HCPCS: 93306

== ENCOUNTER 2023-07-18 07:44 | Outpatient (CLI) | payer BC, SELFPAY ==
[2023-07-18 07:59] LABS: Basophils Absolute Auto 0.1 K/mm3 (0.0-0.1); Basophils Percent Auto 0.8 % (0.2-1.2); Eosinophils Absolute Auto 0.4 K/mm3 (0-0.3); Eosinophils Percent Auto 5.4 % (0-4.4); Hematocrit 44.5 % (37.0-47.0); Immature Granulocyte Absolute 0.01 K/mm3 (0.00-0.031); Immature Granulocyte Percent A 0.1 % (0-0.5); Lymphocytes Absolute Auto 1.98 K/mm3 (0.9-3.2); Lymphocytes Percent Auto 27.3 % (18.3-44.2); Mean Corpuscular HGB Conc 31.5 g/dl (32-36); Mean Corpuscular Hemoglobin 28.9 pg (26-34); Mean Corpuscular Volume 91.8 fl (80-100); Mean Platelet Volume 11.9 fl (7.4-10.4); Monocytes Absolute Auto 0.7 K/mm3 (0.1-0.6); Monocytes Percent Auto 9.7 % (2.6-8.5); Neutrophils Absolute Auto 4.1 K/mm3 (1.3-6.7); Neutrophils Percent Auto 56.7 % (45.5-73.1); Platelet Count Result 167 k/mm3 (150-375); Red Blood Count 4.85 M/mm3 (4.2-5.4); Red Cell Distribution Width 13.6 % (11.5-14.5); White Blood Count 7.2 K/mm3 (4.5-10.0)
[2023-07-18 08:25] LABS: Alanine Aminotransferase 29 U/L (6-35); Albumin Level 4.5 g/dL (3.5-5.1); Alkaline Phosphatase 67 U/L (38-126); Anion Gap 9 mmol/L (8-16); Aspartate Amino Transferase 33 U/L (14-36); Bilirubin,Total 1.2 mg/dL (0.2-1.3); Blood Urea Nitrogen 16 mg/dL (7-17); Calcium 9.1 mg/dL (8.4-10.2); Carbon Dioxide 25 mmol/L (22-30); Chloride 106 mmol/L (98-107); Estimated Glomerular Filt Rate > 60; Glucose 99 mg/dL (65-110); Potassium 4.6 mmol/L (3.4-5.0); Sodium 140 mmol/L (137-145)
[2023-07-18 08:42] LABS: Thyroid Stimulating Hormone 0.172 uIU/mL (0.465-4.680)
[2023-07-18 08:47] LABS: Free T4 Free Thyroxine 1.07 ng/mL (0.78-2.19)
[2023-07-22 04:19] LABS: Thyroid Peroxidase Antibodies 411 IU/mL (<9)
== END 2023-07-18 07:45 | disposition home or self-care (01) ==
PROVIDERS: PCP Nurse Practitioner Family; Visit Provider Nurse Practitioner Family
DX: R53.83 Other fatigue (principal); I10 Essential (primary) hypertension; F41.9 Anxiety disorder, unspecified; E66.9 Obesity, unspecified; R76.8 Other specified abnormal immunological findings in serum
CPT/HCPCS: 36415; 80053; 83036; 84439; 84443; 85025; 86376

== ENCOUNTER 2023-08-21 10:25 | Outpatient (CLI) | payer BC, SELFPAY ==
--- NOTE | ~2023-08-21 | US_ITS ---
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 TECHNIQUE: Multiple ultrasound images of the thyroid were obtained. COMPARISON: None. FINDINGS: The right thyroid lobe measures 5.5 x 2.5 x 2.2 cm. The left thyroid lobe measures 4.8 x 2.1 x 2.0 c m. The isthmus measures 0.1 cm. There is heterogeneous echogenicity throughout the thyroid gland, whi ch can reduce sensitivity of detection of thyroid nodules. No discrete nodules identified. Normal vas cular flow is present. IMPRESSION: Heterogeneous thyroid, as can be seen with Graves' disease and Rodríguez's thyroiditis. Reviewed, dictated and finalized at location K. CAL OFFICE SCHEDULER IMPRESSION: Heterogeneous thyroid, as can be seen with Graves' disease and Rodríguez's thyr oiditis.
== END 2023-08-21 10:26 ==
LOC: MICIMG 10:26
PROVIDERS: PCP Internal Medicine; Visit Provider Internal Medicine
DX: E06.3 Autoimmune thyroiditis (principal)
CPT/HCPCS: 76536

== ENCOUNTER 2023-09-15 07:47 | Outpatient (CLI) | payer BC, SELFPAY ==
--- NOTE | ~2023-09-15 | DEXA_ITS ---
Bone Density Report Name: KRISTEN CASH Age: 62 Sex: Female Ethnicity: White Date of : 1960 Indication: postmenopausal; screening for osteoporosis; asthma or emphysema; Referring Provider: HALINA SALVADOR Study: Bone densitometry was performed. Exam Date: September 15, 2023 Accession number: [id number] Bone Density: Region BMD T-score Z-score Classification AP Spine(L1-L4) 1.107 0.5 2.2 Normal Femoral Neck (Left) 0.910 0.5 2.0 Normal Total Hip (Left) 1.107 1.4 2.5 Normal Femoral Neck (Right) 0.905 0.5 1.9 Normal Total Hip (Right) 1.053 0.9 2.0 Normal Total Hip Mean 1.080 1.2 2.3 Normal World Health Organization criteria for BMD impression classify patients as: Normal (T-score at or above -1.0), Osteopenia (T-score between -1.0 and -2.5), or Osteoporosis (T-score at or below -2.5). 10-year Fracture Risk: FRAX not reported because: All T-scores for Spine Total, Hip Total, Femoral Neck at or above -1.0 Clinical Information Provided by Patient: Has the following medical conditions: Asthma or Emphysema Patient maximum height was 63.5 Menopause Age: 58 Does not regularly consume dairy products Drinks caffeinated beverages Onset of menses at age 15 Number of children 2 Impression: The patient has normal bone mass. Discussion: LOW RISK OF FRACTURE; BONE DENSITY IS WELL ABOVE THE MINIMUM DESIRABLE LEVEL AND ABOVE AVERAGE FOR AGE AND SEX AT ALL SKELETAL SITES TESTED. This person's bone density is above expected limits for age and sex. This is rarely clinically significant, but should be pursued if there are significant musculoskeletal complaints. The patient should follow a healthful lifestyle (good nutrition with adequate calcium and vitamin D, and appropriate weight-bearing exercise). Follow-Up: Consider repeating this study in 5 years or sooner if there is some new clinical indication. Reported by: PETR on 09/15/2023 8:21:00 AM. Reviewed, dictated and finalized at location ASudheer RAMSEY
--- NOTE | ~2023-09-15 | MM_ITS ---
EXAMINATION: MM screening leda BI w ana HISTORY: Screening mammogram TECHNIQUE: Craniocaudal and mediolateral oblique 3-D tomosynthesis images were obtained and synthetic 2-D images were generated. CAD analysis was submitted and interpreted. COMPARISON: 05/16/2022, 04/23/2021 bilateral screening mammogram examinations BREAST PARENCHYMAL COMPOSITION: There are scattered areas of fibroglandular density. FINDINGS: There is no evidence of suspicious mass, calcification, or architectural distortion to sugg est malignancy in either breast. There has been no suspicious interval change. IMPRESSION: 1. No mammographic evidence of malignancy. 2. Recommend routine screening mammography in one year. BI-RADS Category 1: Negative Reviewed, dictated and finalized at location A.
== END 2023-09-15 07:48 | disposition home or self-care (01) ==
PROVIDERS: PCP Internal Medicine; Visit Provider Nurse Practitioner Family
DX: Z12.31 Encounter for screening mammogram for malignant neoplasm of breast (principal); J45.909 Unspecified asthma, uncomplicated; Z78.0 Asymptomatic menopausal state; Z13.820 Encounter for screening for osteoporosis
CPT/HCPCS: 77063; 77067; 77080

== ENCOUNTER 2023-12-02 12:35 | Outpatient (CLI) | payer BC, SELFPAY ==
[2023-12-02 14:33] LABS: Free T4 Free Thyroxine 1.02 ng/mL (0.78-2.19)
== END 2023-12-02 12:36 | disposition home or self-care (01) ==
LOC: ANHLAB 12:36
PROVIDERS: PCP Internal Medicine; Visit Provider Internal Medicine
DX: E03.9 Hypothyroidism, unspecified (principal)
CPT/HCPCS: 36415; 84439; 84443

== ENCOUNTER 2024-01-18 06:51 | Outpatient (CLI) | payer BC, SELFPAY ==
[2024-01-18 07:25] LABS: Alanine Aminotransferase 24 U/L (6-35); Albumin Level 4.6 g/dL (3.5-5.1); Alkaline Phosphatase 64 U/L (38-126); Anion Gap 10 mmol/L (4-12); Aspartate Amino Transferase 28 U/L (14-36); Blood Urea Nitrogen 19 mg/dL (7-17); Calcium 9.2 mg/dL (8.4-10.2); Carbon Dioxide 28 mmol/L (22-30); Chloride 103 mmol/L (98-107); Cholesterol 151 mg/dL (0-200); Estimated Glomerular Filt Rate > 60; Glucose 109 mg/dL (65-110); HDL Direct 50 mg/dL; Potassium 4.4 mmol/L (3.4-5.0); Sodium 141 mmol/L (137-145); Triglycerides 109 mg/dL (<150)
[2024-01-18 07:36] LABS: LDL Cholesterol Direct 83 mg/dL
[2024-01-18 07:59] LABS: Free T4 Free Thyroxine 0.88 ng/mL (0.78-2.19)
[2024-01-18 08:57] LABS: Hemoglobin A1C 6.1 % (<5.7)
== END 2024-01-18 06:52 | disposition home or self-care (01) ==
LOC: ANHLAB 06:52
PROVIDERS: PCP Internal Medicine; Referring Provider Internal Medicine; Visit Provider Nurse Practitioner Family
DX: E06.3 Autoimmune thyroiditis (principal); I10 Essential (primary) hypertension; J45.909 Unspecified asthma, uncomplicated; R00.2 Palpitations; R53.83 Other fatigue; R73.03 Prediabetes
CPT/HCPCS: 36415; 80053; 80061; 83036; 84439; 84443

== ENCOUNTER 2024-06-03 08:16 | Outpatient (CLI) | payer BC, SELFPAY ==
[2024-06-03 09:14] LABS: Alanine Aminotransferase 25 U/L (6-35); Albumin Level 4.5 g/dL (3.5-5.1); Alkaline Phosphatase 70 U/L (38-126); Anion Gap 5 mmol/L (4-12); Aspartate Amino Transferase 30 U/L (14-36); Bilirubin,Total 1.3 mg/dL (0.2-1.3); Blood Urea Nitrogen 17 mg/dL (7-17); Calcium 8.8 mg/dL (8.4-10.2); Carbon Dioxide 30 mmol/L (22-30); Chloride 106 mmol/L (98-107); Estimated Glomerular Filt Rate > 60; Glucose 94 mg/dL (65-110); Potassium 3.9 mmol/L (3.4-5.0); Sodium 141 mmol/L (137-145)
[2024-06-03 09:28] LABS: Hemoglobin A1C 5.6 % (<5.7)
== END 2024-06-03 08:17 | disposition home or self-care (01) ==
LOC: ANHLAB 08:19
PROVIDERS: PCP Nurse Practitioner Family; Visit Provider Nurse Practitioner Family
DX: E03.9 Hypothyroidism, unspecified (principal); E66.9 Obesity, unspecified; R73.03 Prediabetes
CPT/HCPCS: 36415; 80053; 83036

== ENCOUNTER 2024-08-13 08:30 | Outpatient (CLI) | payer BC, SELFPAY ==
--- OUTSIDE RECORDS SUMMARY | 2024-08-13 08:33 | XMS_ITS | Clinical Summary ---
Author Organization [facility] Address [address] [place] [address] Care Team Providers Care Manager Cardiac Name Role Phone Den Bui MD Primary Care Provider [phone] Allergies No known active allergies Medications ondansetron (ZOFRAN-ODT) 4 MG disintegrating tablet Take 1 tablet (4 mg total) by mouth every 8 (eight) hours as needed for Nausea. 20 tablet Active Social History Tobacco Use Types Packs/Day Years Used Date Smoking Tobacco: Never Smokeless Tobacco: Never Tobacco Cessation:Counseling Given: Not Answered Alcohol Use Standard Drinks/Week Comments Not Currently 0 (1 standard drink = 0.6 oz pur e alcohol) Comments No Sex and Gender Information Value Date Recorded Sex Assigned at Not on file Legal Sex Female 5:00 PM CDT Gender Identity Not on file Sexual Orientation Not on file Last Filed Vital Signs Vital Sign Reading Time Taken Comments Blood Pressure 153/63 04/09/2023 7:00 PM CDT Pulse 57 04/09/2023 7:00 PM CDT Temperature 36.7 C (98.1 F) 04/09/2023 5:07 PM CDT Respiratory Rate 17 04/09/2023 7:00 PM CDT Oxygen Saturation 89% 04/09/2023 7:00 PM CDT Inhaled Oxygen Concentration - - Weight 86.2 kg (190 lb) 04/09/2023 5:07 PM CDT Height 162.6 cm (5' 4 ) 04/09/2023 5:07 PM CDT Body Mass Index 32.61 04/09/2023 5:07 PM CDT Plan of Treatment Health Maintenance Due Date Last Done Comments Cervical Cancer Screening Pa p Smear (Age 30 to 64) Every 3 Years 1960 Colorectal Cancer Screening Colonoscopy (10 Years) 1960 Annual Physical 12/09/1963 Hepatitis C 1978 DTaP, Tdap and Td Vaccines ( 1 - Tdap) 12/09/1979 Cervical Cancer Screening Pa p with HPV Testing (Age 30 to 64) Every 5 Years 1990 Cervical Cancer Screening with HPV 1990 Mammogram Screening 2000 Zoster Vaccines (1 of 2) 2010 COVID-19 Vaccine ( - 2023-2 5 season) 2024 Influenza Adult (#1) 2024 RSV Immunization or 60+ Years (1 - 1-dose 75+ series) 12/09/2035 Meningococcal B Vaccine Aged Out No l onger eligible based on patient's age to complete this topic Meningococcal Vaccine Aged Out No zahra albin eligible based on patient's age to complete this topic Pneumococcal Vaccine: Pediat rics (0 to 5 Years) and At-Risk Patients (6 to 64 Years) Aged Out No longer eligible b ased on patient's age to complete this topic RSV Immunizations Under 20 Months Aged Out No longer eligible based on patient's age to complete this topic Insurance [facility] Care Teams Manager Cardiac Relationship Specialty Start Date End Date Den Bui MD [address] [place] [address] PCP - General FAMILY PRACTICE 04/09/23
[2024-08-13 09:31] LABS: Thyroid Stimulating Hormone 0.106 uIU/mL (0.465-4.680)
[2024-08-13 09:33] LABS: Free T4 Free Thyroxine 1.21 ng/dL (0.78-2.19)
== END 2024-08-13 08:31 | disposition home or self-care (01) ==
LOC: ANHLAB 08:32
PROVIDERS: PCP Internal Medicine; Visit Provider Internal Medicine
DX: E06.3 Autoimmune thyroiditis (principal); E03.9 Hypothyroidism, unspecified
CPT/HCPCS: 36415; 84439; 84443

== ENCOUNTER 2024-10-19 14:04 | Outpatient (CLI) | payer BC, SELFPAY ==
--- NOTE | ~2024-10-19 | MM_ITS ---
EXAMINATION: MM screening leda BI w ana HISTORY: Screening TECHNIQUE: Craniocaudal and mediolateral oblique 3-D tomosynthesis images were obtained and synthetic 2-D images were generated. CAD analysis was submitted and interpreted. COMPARISON: Comparison to multiple prior studies sequentially, with oldest reviewed study dated 03/2018. BREAST PARENCHYMAL COMPOSITION: Not dense: There are scattered areas of fibroglandular density. FINDINGS: New focal left breast asymmetry posterior to the nipple on CC view, anterior-mid depth. Rig ht breast is stable without evidence for malignancy. IMPRESSION: 1. New focal left breast asymmetry. 2. Additional mammographic views and possible breast ultrasound are recommended. BI-RADS Category 0: Incomplete: Needs additional imaging evaluation. Reviewed, dictated and finalized at location B. IMPRESSION: 1. New focal left breast asymmetry. 2. Additional mammographic views and possible breast ultrasound are recommended . BI-RADS Category 0: Incomplete: Needs additional imaging evaluation.
--- OUTSIDE RECORDS SUMMARY | 2024-10-19 15:19 | XMS_ITS | Clinical Summary ---
Author Organization [facility] Address [address] [place] [id number] Care Team Providers Care Industrial Cleaner Name Role Phone Den Bui MD Primary Care Provider [phone] Allergies No known active allergies Medications ondansetron [...] Vaccine ( - 2023-2 5 season) 2024 RSV Immunization or 60+ Years (1 - 1-dose 75+ series) 12/09/2035 Meningococcal B Vaccine Aged Out No l onger eligible based on patient's age to complete this topic Meningococcal Vaccine Aged Out No zahra albin eligible based on patient's age to complete this topic Pneumococcal Vaccine: Pediat rics (0 to 5 Years) and At-Risk Patients (6 to 49 Years) Aged Out No longer eligible b ased on patient's age to complete this topic RSV Immunizations Under 20 Months Aged Out No longer eligible based on patient's age to complete this topic Insurance [facility] Care Teams Industrial Cleaner Relationship Specialty Start Date End Date Den Bui MD [address] [place] [address] PCP - General FAMILY PRACTICE 04/09/23
== END 2024-10-19 14:05 | disposition home or self-care (01) ==
LOC: ANHIMG 14:07
PROVIDERS: PCP Nurse Practitioner Family; Visit Provider Nurse Practitioner Family
DX: Z12.31 Encounter for screening mammogram for malignant neoplasm of breast (principal); N64.89 Other specified disorders of breast
CPT/HCPCS: 77063; 77067

== ENCOUNTER 2024-11-02 12:52 | Outpatient (CLI) | payer BC, SELFPAY ==
--- NOTE | ~2024-11-02 | MMUS_ITS ---
EXAMINATION: US breast LT limited, MM diagnostic leda LT w ana HISTORY: Follow-up left breast asymmetry TECHNIQUE: Additional 3-D tomosynthesis images of the left breast were performed and synthetic 2-D im ages were generated. CAD analysis was submitted and interpreted. High resolution Limited left breast ultrasound was performed. COMPARISON: Comparison to multiple prior studies sequentially, with oldest reviewed study dated 10/21. BREAST PARENCHYMAL COMPOSITION: Not dense: There are scattered areas of fibroglandular density. FINDINGS: MAMMOGRAPHIC FINDINGS: There are no suspicious masses, calcifications or architectural distortion in the left breast to sugg est malignancy. ULTRASOUND: Limited left breast ultrasound: At 6:00 in the periareolar location of the left breast there is a 3 m m cyst. No suspicious masses to suggest malignancy. IMPRESSION: 1. No evidence for malignancy in the left breast. 2. Routine yearly screening mammogram and regular clinical breast examination are recommended. BI-RADS Category 2: Benign finding(s). Reviewed, dictated and finalized at location A. IMPRESSION: 1. No evidence for malignancy in the left breast. 2. Routine yearly screening mammogram and regular clinical breast examination a re recommended. BI-RADS Category 2: Benign finding(s).
--- OUTSIDE RECORDS SUMMARY | 2024-11-02 13:46 | XMS_ITS | Clinical Summary ---
Author Organization [facility] Address [address] [place] [address] Care Team Providers Care Revenue Enforcement Agent Name Role Phone Den Bui MD Primary Care Provider Allergies No known active allergies Medications ondansetron [...] Screening with HPV 1990 Mammogram Screening 2000 Pneumococcal Vaccine: 50+ Ye ars (1 of 1 - PCV) 2010 Zoster Vaccines (1 of 2) 2010 COVID-19 Vaccine (1 - 2023-2 5 season) 2024 RSV Immunization [...] patient's age to complete this topic Insurance [facility] Care Teams Revenue Enforcement Agent Relationship Specialty Start Date End Date Den Bui MD [address] [place] [address] PCP - General FAMILY PRACTICE 04/09/23
== END 2024-11-02 12:53 | disposition home or self-care (01) ==
LOC: ANHIMG 12:53
PROVIDERS: PCP Nurse Practitioner Family; Visit Provider Nurse Practitioner Family
DX: R92.8 Other abnormal and inconclusive findings on diagnostic imaging of breast (principal)
CPT/HCPCS: 76642; 77061; 77065; G0279

== ENCOUNTER 2024-11-03 07:00 | Outpatient (CLI) | payer BC, SELFPAY ==
--- OUTSIDE RECORDS SUMMARY | 2024-11-03 07:03 | XMS_ITS | Clinical Summary ---
Author Organization [facility] Address [address] [place] [address] Care Team Providers Care Laborer General Name Role Phone Den Bui MD Primary Care Provider [phone] Allergies No known active allergies Medications ondansetron [...] topic Insurance [facility] Care Teams Laborer General Relationship Specialty Start Date End Date Den Bui MD [address] [place] [address] PCP - General FAMILY PRACTICE 04/09/23
[2024-11-03 07:31] LABS: Basophils Absolute Auto 0.1 K/mm3 (0.0-0.1); Basophils Percent Auto 0.9 % (0.2-1.2); Eosinophils Absolute Auto 0.5 K/mm3 (0-0.3); Eosinophils Percent Auto 7.8 % (0-4.4); Hematocrit 45.5 % (37.0-47.0); Hemoglobin 14.7 g/dL (12.0-15.0); Immature Granulocyte Absolute 0.01 K/mm3 (0.00-0.031); Immature Granulocyte Percent A 0.1 % (0-0.5); Lymphocytes Absolute Auto 2.13 K/mm3 (0.9-3.2); Lymphocytes Percent Auto 31.3 % (18.3-44.2); Mean Corpuscular HGB Conc 32.3 g/dl (32-36); Mean Corpuscular Hemoglobin 29.4 pg (26-34); Monocytes Absolute Auto 0.6 K/mm3 (0.1-0.6); Monocytes Percent Auto 8.5 % (2.6-8.5); Neutrophils Absolute Auto 3.5 K/mm3 (1.3-6.7); Neutrophils Percent Auto 51.4 % (45.5-73.1); Platelet Count Result 190 k/mm3 (150-375); Red Cell Distribution Width 13.6 % (11.5-14.5); White Blood Count 6.8 K/mm3 (4.5-10.0)
[2024-11-03 07:46] LABS: Alanine Aminotransferase 33 U/L (6-35); Albumin Level 4.8 g/dL (3.5-5.1); Alkaline Phosphatase 71 U/L (38-126); Anion Gap 10 mmol/L (4-12); Aspartate Amino Transferase 32 U/L (14-36); Blood Urea Nitrogen 16 mg/dL (7-17); Calcium 9.1 mg/dL (8.4-10.2); Carbon Dioxide 29 mmol/L (22-30); Chloride 102 mmol/L (98-107); Cholesterol 154 mg/dL (0-200); Estimated Glomerular Filt Rate > 60; Glucose 98 mg/dL (65-110); HDL Direct 52 mg/dL; Sodium 141 mmol/L (137-145); Triglycerides 112 mg/dL (<150)
[2024-11-03 07:58] LABS: LDL Cholesterol Direct 59 mg/dL
[2024-11-03 09:50] LABS: Hemoglobin A1C 5.3 % (<5.7)
== END 2024-11-03 07:01 | disposition home or self-care (01) ==
LOC: ANHLAB 07:01
PROVIDERS: PCP Nurse Practitioner Family; Visit Provider Nurse Practitioner Family
DX: R73.03 Prediabetes (principal); E03.9 Hypothyroidism, unspecified; I10 Essential (primary) hypertension
CPT/HCPCS: 36415; 80053; 80061; 83036; 84439; 84443; 85025

== ENCOUNTER 2025-06-17 09:27 | Outpatient (CLI) | payer BC, SELFPAY ==
--- OUTSIDE RECORDS SUMMARY | 2025-06-17 09:29 | XMS_ITS | Clinical Summary ---
Author Organization [facility] Address [facility] [place] [address] Care Team Providers Care Medical Receptionist Name Role Phone Den Bui MD Primary Care Provider [phone] Allergies No known active allergies Medications ondansetron [...] 5:07 PM CDT Height 162.6 cm (5' 4) 04/09/2023 5:07 PM CDT Body Mass Index [...] of 2) 2010 COVID-19 Vaccine (1 - 2024-2 6 season) 2025 Influenza Adult (#1) 2025 RSV Immunization or 60+ Years (1 - 1-dose 75+ series) 12/09/2035 Hepatitis A Vaccines Aged Out No long er eligible based on patient's age to complete this topic Meningococcal B Vaccine Aged Out No l onger eligible based on patient's age to complete this topic Meningococcal Vaccine Aged Out No zahra albin eligible based on patient's age to complete this topic RSV Immunizations Under 20 Months Aged Out No longer eligible based on patient's age to complete this topic Insurance [facility] Care Teams Medical Receptionist Relationship Specialty Start Date End Date Den Bui MD [address] [place] [address] PCP - General FAMILY PRACTICE 04/09/23
[2025-06-17 09:55] LABS: Hemoglobin A1C 5.6 % (<5.7)
[2025-06-17 10:21] LABS: Free T4 Free Thyroxine 0.87 ng/dL (0.78-2.19)
[2025-06-17 10:28] LABS: Alanine Aminotransferase 35 U/L (6-35); Albumin Level 4.6 g/dL (3.5-5.1); Alkaline Phosphatase 77 U/L (38-126); Anion Gap 5 mmol/L (4-12); Aspartate Amino Transferase 36 U/L (14-36); Bilirubin,Total 1.1 mg/dL (0.2-1.3); Blood Urea Nitrogen 14 mg/dL (7-17); Calcium 9.3 mg/dL (8.4-10.2); Carbon Dioxide 32 mmol/L (22-30); Chloride 102 mmol/L (98-107); Estimated Glomerular Filt Rate > 60; Glucose 95 mg/dL (65-110); Potassium 4.1 mmol/L (3.4-5.0); Sodium 139 mmol/L (137-145); Total Protein 7.8 g/dL (6.3-8.2)
[2025-06-17 10:42] LABS: Thyroid Stimulating Hormone 4.260 uIU/mL (0.465-4.680)
== END 2025-06-17 09:28 | disposition home or self-care (01) ==
LOC: ANHLAB 09:27
PROVIDERS: PCP Nurse Practitioner Family; Referring Provider Nurse Practitioner Family; Visit Provider Internal Medicine
DX: F41.9 Anxiety disorder, unspecified (principal); Z12.39 Encounter for other screening for malignant neoplasm of breast; J45.20 Mild intermittent asthma, uncomplicated; I11.9 Hypertensive heart disease without heart failure; I51.9 Heart disease, unspecified; E03.9 Hypothyroidism, unspecified; E66.9 Obesity, unspecified
CPT/HCPCS: 36415; 80053; 83036; 84439; 84443